=== PATIENT | male | born 1975 ===

== ENCOUNTER 2022-04-12 06:00 | Day surgery (SDC) | payer SELFPAY ==
[2022-04-12] MEDS ORDERED: Propofol 200 MG/20 ML SDV ONE (06:48)
[2022-04-12] MEDS ORDERED: fentaNYL 250 MCG/5 ML SDV ONE (06:49)
[2022-04-12] MEDS ORDERED: Ropivacaine 0.5% 5 MG/ML 30 ML SDV ONE (06:53)
[2022-04-12] MEDS ORDERED: ceFAZolin 1 GM Vial IVPUSH ONE (07:15)
[2022-04-12] MEDS ORDERED: Lactated Ringers 1,000 ML IV ONE (07:15)
[2022-04-12] MEDS ORDERED: Bupivacaine 0.25% 10 ML SDV ONE (07:25)
[2022-04-12] MEDS ORDERED: fentaNYL 100 MCG/2 ML SDV ONE (07:33)
[2022-04-12] MEDS ORDERED: HYDROmorphone 2 MG/ML Syringe ONE (07:54)
[2022-04-12] MEDS ORDERED: Dexamethasone 4 MG/ML 5 ML MDV ONE (07:54)
[2022-04-12] MEDS ORDERED: Ondansetron 4 MG/2 ML SDV ONE (07:54)
[2022-04-12] MEDS ORDERED: Ketorolac 30 MG/ML SDV ONE (07:54)
== END 2022-04-12 09:00 ==
LOC: MW.SDS 06:00
PROVIDERS: ATTEND Orthopaedic Surgery
DX: G56.01 Carpal tunnel syndrome, right upper limb (principal); Z91.040 Latex allergy status
CPT/HCPCS: 64721; J0131; J0690; J1100; J1170; J1885; J2405; J2704; J3010; J3490; J7120; 01810; J2795